=== PATIENT | male | born 1965 | race Caucasian/White ===

== ENCOUNTER → 2021-05-16 | Outpatient (CLI) | payer OTHER ==
[~2021-05-16] MED LIST: ALBU17IN INH; AMLO1TAB24 PO; ASPI81TA26 PO; ATOR40TA75 PO; BREO1INH INH; CARB1TAB PO; CLEM2.68 PO; CLOP75TA2 PO; FERR325T3 PO; FOLI1TAB11 PO; ISOS1TAB35 PO; LEVO50TA5 PO; LISI10TA22 PO; NITR0.4S14 SL; OMEP40CA4 PO; TOPA100T12 PO; TRAZ-257 PO
--- NOTE | 2021-05-16 10:38 | REP ---
INDICATION: LT LEG PAIN SWELLING ? DVT COMPARISON: None. TECHNIQUE: Real time compression and duplex Doppler interrogation of the left lower extremity deep venous system is performed, including the right common femoral vein.Compression of the left peroneal and posterior tibial veins is performed. FINDINGS: The left common femoral, superficial femoral and popliteal veins are fully compressible with transducer pressure and demonstrate normal spontaneous and phasic flow, without evidence of deep venous thrombosis.The right common femoral vein demonstrates no thrombus.The visualized left peroneal and posterior tibial veins demonstrate no thrombus. IMPRESSION: No evidence of deep venous thrombosis of the left lower extremity femoral popliteal venous system.No thrombus in the visualized left peroneal and posterior tibial veins. <Electronically signed by Huan Fermin > 05/16/21 3007
== END ==
LOC: M RAD 10:07
PROVIDERS: ATTEND Student in an Organized Health Care Education/Training Program
DX: M79.605 Pain in left leg (principal)

== ENCOUNTER → 2021-12-19 | Outpatient (REF) | payer OTHER | LOC: M LAB REF 15:58 | PROVIDERS: ATTEND Surgery | DX: L72.3 Sebaceous cyst (principal) ==